=== PATIENT | female | born 1950 | race Caucasian/White ===

== ENCOUNTER 2017-12-15 04:43 | Emergency (ER) | payer OTHER ==
[~2017-12-15] VITALS: Ht 157.5 cm; Wt 53.5 kg
[~2017-12-15 04:43] MED LIST: AMOX1TAB5 PO; ATACAND HCT 11 UDTA1; CIPRO500 MG PO; FLAGYL500MG PO; INTESTINEX680 MG PO; LEVSIN/SL0.125 MG PO; LEVSIN/SL0.125 MG SL; PANTOPRAZOLE SO40 MG PO; PROTONIX40 MG PO; SKELAXIN800 MG PO; ULTRACET PO
[2017-12-15] MEDS ORDERED: NORVASC5 MG (04:58)
== END 2017-12-15 18:52 | disposition home or self-care (01) ==
LOC: ER 04:43
DX: K29.60 Other gastritis without bleeding (principal); R10.13 Epigastric pain

== ENCOUNTER 2019-03-17 08:00 | Outpatient (CLI) | payer OTHER ==
[~2019-03-17 08:00] MED LIST changes: +NORVASC5 MG
== END 2019-03-17 15:00 | disposition home or self-care (01) ==
LOC: LAB 08:00
DX: E03.8 Other specified hypothyroidism (principal); I11.9 Hypertensive heart disease without heart failure; E11.69 Type 2 diabetes mellitus with other specified complication; E78.00 Pure hypercholesterolemia, unspecified; D50.0 Iron deficiency anemia secondary to blood loss (chronic); N39.0 Urinary tract infection, site not specified; N08 Glomerular disorders in diseases classified elsewhere; M54.5 Low back pain; M85.89 Other specified disorders of bone density and structure, multiple sites

== ENCOUNTER 2019-03-17 09:19 | Outpatient (CLI) | payer OTHER | END 2019-03-17 10:11 | disposition home or self-care (01) | LOC: SONOGRAMA 09:19 | DX: E04.1 Nontoxic single thyroid nodule (principal); E03.8 Other specified hypothyroidism; I11.9 Hypertensive heart disease without heart failure; N08 Glomerular disorders in diseases classified elsewhere; M54.5 Low back pain; M85.89 Other specified disorders of bone density and structure, multiple sites ==

== ENCOUNTER 2021-12-21 08:12 | Outpatient (CLI) | payer OTHER | END 2021-12-21 08:49 | disposition home or self-care (01) | LOC: SONOGRAMA 08:12 | DX: N20.1 Calculus of ureter (principal); J06.9 Acute upper respiratory infection, unspecified ==